=== PATIENT | female | born 1965 | race American Indian/Alaskan Native ===

== ENCOUNTER 2017-02-04 07:30 | Inpatient (IN) | payer BC, OTHER ==
--- NOTE | 2017-01-25 12:51 | Anesthesia Consultation ---
Anesthesia Consult and Med Hx Date of service: 01/25/17 - Airway Anesthetic Teeth Evaluation: Good ROM Head & Neck: Adequate Mental/Hyoid Distance: Adequate Mallampati Class: Class II Intubation Access Assessment: Probably Good - Pulmonary Exam CTA: Yes - Cardiac Exam Cardiac Exam: RRR - Pre-Operative Health Status ASA Pre-Surgery Classification: ASA3 Proposed Anesthetic Plan: General - Pulmonary Hx Sleep Apnea: Yes (uses cpap) - Cardiovascular System Hx Hypertension: Yes (3years) - Central Nervous System Hx Psychiatric Problems: No - Other Systems Hx Alcohol Use: No Hx Substance Use: No Hx Cancer: No Hx Obesity: Yes
[~2017-02-04 07:30] MED LIST: LACTATED RINGERS 1,000 ML IV SCH; PEPCID IV NR; TRANSDERM-SCOP TD NR
[2017-02-04] MEDS ORDERED: REGLAN IV PRN (10:59)
[2017-02-04] MEDS ORDERED: FLAGYL 500 MG/100 ML 500 MG/100 ML BAG IV NR (11:00)
[2017-02-04] MEDS ORDERED: LACTATED RINGERS 1,000 ML IV SCH (11:00)
[2017-02-04] MEDS ORDERED: ANCEF/STERILE WATER 2 GM/20 ML IV NR (11:00)
[2017-02-04] MEDS ORDERED: VERSED IV NR (11:00)
[2017-02-04] MEDS ORDERED: LOVENOX SUB-Q NR (11:00)
[2017-02-04] MEDS ORDERED: APRESOLINE IV PRN (11:00)
[2017-02-04] MEDS ORDERED: MORPHINE IV PRN (11:00)
[2017-02-04] MEDS ORDERED: NORCO PO PRN (11:00)
[2017-02-04] MEDS ORDERED: BENADRYL IV PRN (12:36)
[2017-02-04] MEDS ORDERED: DIPRIVAN 10 MG/ML IV ONE (12:55)
[2017-02-04] MEDS ORDERED: ZEMURON IV ONE (12:55)
[2017-02-04] MEDS ORDERED: DILAUDID ONE (12:55)
[2017-02-04] MEDS ORDERED: XYLOCAINE MPF 2% ONE (12:55)
[2017-02-04] MEDS ORDERED: ZOFRAN ONE (12:55)
[2017-02-04] MEDS ORDERED: DECADRON ONE (12:55)
[2017-02-04] MEDS ORDERED: XYLOCAINE 1% 20 mL ONE (13:09)
[2017-02-04] MEDS ORDERED: MARCAINE 0.5% 30 ML INFILTRATI ONE (13:09)
[2017-02-04] MEDS ORDERED: ADRENALIN ONE (13:09)
[2017-02-04] MEDS ORDERED: NACL 0.9% 1000 ML 1,000 ML ONE (13:42)
[2017-02-04] MEDS ORDERED: XYLOCAINE 1% 20 mL INFILTRATI ONE (13:52)
[2017-02-04] MEDS ORDERED: MARCAINE 0.5% INFILTRATI ONE (13:54)
[2017-02-04] MEDS ORDERED: NACL 0.9% IR ONE (13:54)
[2017-02-04] MEDS ORDERED: NACL 0.9% 1000 ML IR ONE (13:55)
[2017-02-04] MEDS: ZOFRAN IV PRN ×2 (15:25→18:50)
[2017-02-04] MEDS: TORADOL IV SCH ×2 (15:30→19:50)
[2017-02-04] MEDS: DILAUDID IV PRN ×4 (15:38→23:58)
--- NOTE | 2017-02-04 15:49 | Operative Report ---
Operative Report Operative Report: Operative Report DATE OF PROCEDURE: 02/04/17 PREOPERATIVE DIAGNOSES: Morbid obesity, hiatal hernia POSTOPERATIVE DIAGNOSES: 1.same as pre-op SURGEON: Regi Cannon M.D. ROOM SERVICE SERVER: Re Ahumada D.O PROCEDURE: 1. laparoscopic sleeve gastrectomy 2. laparoscopic hiatal hernia repair ANESTHESIA: General. ESTIMATED BLOOD LOSS: <5 mL. COMPLICATIONS: None. SPECIMEN: Partial gastrectomy. FINDINGS: 1. hiatal hernia INDICATION FOR PROCEDURE: Patient is a 51-year-old female with a long history of morbid obesity. She has tried multiple efforts at weight loss without operation manager success. She is here today for sleeve gastrectomy. PROCEDURE IN DETAIL: After consent was reviewed, patient was taken back to the operating room, where patient was placed supine on the bed with both arms out. The patient's legs were doubly strapped to the bed. Patient had a foot board in place. Patient had a body warmer placed by anesthesia. Patient was then prepped and draped in normal sterile surgical fashion. After a time-out was called, I made a stab incision in the LUQ placed a Veress needle through this incision and insufflated the abdomen to 18 mmHg pressure. I then counted down a handsbreadth below the xiphoid process in the midline and slightly left lateral injected local anesthetic and made about 1.5 cm transverse incision. I then used a 5mm Optiview trocar to enter into the abdomen hands breath above and lateral to umbilicus. I then placed a 45-degree scope through this port and inspected the abdomen. There was no injury on entry of the abdomen. I then placed two 5-mm ports in the right upper quadrant, one along the anterior axillary line and 1 subxiphoid below the costovertebral angle. I then placed a 15-mm port about a handsbreadth left lateral and inferior to my anterior axillary port. I then placed left upper quadrant port along the anterior axillary line in a similar fashion. Prior to each port being placed local anesthesia was placed. I then placed the liver retractor through the subxiphoid port and placed the patient in full reverse Trendelenburg. The right and left crura were skeletonized accentuating a small hiatal hernia. I then identified the pylorus and then counted off 6cm from the pylorus. I then used a LigaSure cutting device to enter into the lesser sac. At that point and then I took down the short gastrics all the way up to the left santo. Then I had anesthesia pass down a 36-[place] bougie along the lesser curvature of the stomach. I made sure everything else was out of the abdomen except the bougie. I then created my gastric sleeve using a 60-mm laparoscopic stapler. . The sleeve looked good without any twisting or torsion. I then had anesthesia to remove the bougie. Hemostasis was obtained along the staple line.An anterior cruraplasty was perfromed with a figure-of-8 stitch using surgidac suture to reapproximate the crura. I then used Tiseel along the entirety of the staple line and some on the liver. I then removed liver grasper and took it off the field. I then removed the stomach through the 15-mm port. I then closed that fascia with a #1 PDS in a [id number] fashion using a Yogi-Inocencio. I then desufflated the abdomen and then removed all port sites. I then closed the incisions with 4-0 Monocryl in subcuticular fashion. I then dressed the wounds with Dermabond. Patient tolerated the procedure well and was transferred to recovery room in good and stable condition.
[2017-02-04] MEDS: MYLICON PO PRN (17:36)
--- NOTE | 2017-02-04 17:47 | Post Anesthesia Evaluation ---
- Post Anesthesia Evaluation Patient Participated: Yes Airway Patent: Yes Stable Respiratory Function: Yes Nausea/Vomiting: No Temp > 96.8F: Yes Pain Manageable: Yes Adequeate Hydration: Yes Anesthesia Complications: No
[2017-02-04] MEDS: ANCEF/NS 1 GM/50 ML 1 GM/50 ML BAG IV SCH (17:48)
[2017-02-04] MEDS: FLAGYL 500 MG/100 ML 500 MG/100 ML BAG IV SCH (19:26)
[2017-02-05] MEDS: ANCEF/NS 1 GM/50 ML 1 GM/50 ML BAG IV SCH (02:00)
[2017-02-05] MEDS: TORADOL IV SCH ×2 (03:50→11:39)
[2017-02-05] MEDS: FLAGYL 500 MG/100 ML 500 MG/100 ML BAG IV SCH ×2 (03:52→09:46)
[2017-02-05 08:13] VITALS: BP 132/63
--- NOTE | 2017-02-05 09:34 | Progress Note ---
Assessment and Plan 51 y.o. F s/p lap sleeve gastrectomy: POD 1 Pt doing well. No further episodes of vomiting. Adavance to Bariatric clears this am. If pt tolerates clears, her pain is controlled and her labs are wnl, she will be discharged this afternoon. Encourage use of IS Subjective Narrative: Pt seen at beside. Pt had one episode of vomiting after leaving pacu. She denies further vomiting overnight. Nausea controlled with medication. Abd pain at surg. sites controlled with medication. Chest discomfort - pt points to her mid lower chest in the epigastric area. She has a sore throat. +dry cough. Per pt no hx of lung problems. +ambulation. +tolerating ice chips. afebrile Objective Vital Signs - 12hr 02/04/17 02/04/17 02/05/17 22:00 23:58 00:28 Temperature Pulse Rate Pulse Rate [ 82 Left Radial] Respiratory 18 18 18 Rate Blood Pressure O2 Sat by Pulse 98 Oximetry 02/05/17 02/05/17 02/05/17 01:57 01:59 03:50 Temperature 97.8 F Pulse Rate 70 Pulse Rate [ Left Radial] Respiratory 14 Rate Blood Pressure 114/50 O2 Sat by Pulse 99 Oximetry 02/05/17 02/05/17 02/05/17 05:13 05:16 07:42 Temperature 98.4 F 98.3 F Pulse Rate 69 79 Pulse Rate [ Left Radial] Respiratory 20 Rate Blood Pressure 148/58 132/63 O2 Sat by Pulse 98 97 Oximetry - General physical appearance well developed, obese - Respiratory normal expansion, normal respiratory effort - Abdomen soft, tender, other (tender at incision sites. incision sites are c/d/i. no erythema. no rebound no guarding. ) - Integumentary no rash, no growths - Musculoskeletal normal posture - Psychiatric oriented to time, oriented to person
--- NOTE | 2017-02-05 09:40 | Discharge Summary ---
Providers - Providers Date of Admission: 02/04/17 09:16 Attending physician: MAYNOR OLIVAREZ Hospitalization Procedures: laparoscopic sleeve gastrectomy Hospital course: 51 y.o. F admitted to the hospital for laparoscopic sleeve gastrectomy. The patient tolerated the procedure well. On POD 1 she tolerated fluids and her pain was controlled. Her nausea was controlled. She was able to ambulate. She was discharged home on POD 1 without issues. Disposition: DC-01 TO HOME OR SELFCARE Core Measure Documentation - Palliative Care Palliative Care/ Comfort Measures: Not Applicable - Core Measures Any of the following diagnoses?: none Exam - Physical Exam Narrative exam: Abd: soft, tender at incision sites. no rebound no guarding. incision sites cdi. - Constitutional Vitals: Temp Pulse Resp BP Pulse Ox 98.3 F 79 20 132/63 97 02/05/17 07:42 02/05/17 07:42 02/05/17 05:13 02/05/17 07:42 02/05/17 07:42 Plan Activity: other (no lifting >15lbs for 6 weeks) Diet: clear liquids (sugar free) Additional Instructions: follow up for wound care appt. Follow up with: DR NATALIA [Other] - 7 Days
[2017-02-05 09:59] LABS: Basophils % (Auto) 0.3 % (0.0-1.8); Hematocrit 40.3 % (30.3-42.9); Hemoglobin 12.7 gm/dl (10.1-14.3); Mean Corpuscular HGB Conc 32 % (30-34); Mean Corpuscular Volume 80 fl (79-97); Platelet Count 209 K/mm3 (140-440); Red Blood Count 5.02 M/mm3 (3.65-5.03); Red Cell Distribution Width 15.4 % (13.2-15.2)
[2017-02-05] MEDS: ZOFRAN IV PRN (09:59)
[2017-02-05] MEDS: MYLICON PO PRN (09:59)
[2017-02-05] MEDS ORDERED: LOVENOX SUB-Q SCH (10:00)
[2017-02-05 10:02] LABS: Mean Corpuscular Hemoglobin 25 pg (28-32)
[2017-02-05 10:16] LABS: Anion Gap 19 mmol/L; BUN/Creatinine Ratio 20; Blood Urea Nitrogen 16 mg/dL (7-17); Calcium 8.7 mg/dL (8.4-10.2); Carbon Dioxide 23 mmol/L (22-30); Chloride 102.4 mmol/L (98-107); Glucose 98 mg/dL (65-100); Potassium 4.2 mmol/L (3.6-5.0); Sodium 140 mmol/L (137-145)
== END 2017-02-05 17:46 | disposition home or self-care (01) | DRG 621 ==
LOC: 3A 09:16 → 3B-SURG 16:09
PROVIDERS: ADMIT Surgery; ATTEND Surgery
PROC: 0BQT4ZZ Repair Diaphragm, Percutaneous Endoscopic Approach (ICD-10-PCS; principal; 2017-02-04)
PROC: 0DB64Z3 Excision of Stomach, Percutaneous Endoscopic Approach, Vertical (ICD-10-PCS; 2017-02-04)
DX: E66.01 Morbid (severe) obesity due to excess calories (principal); K44.9 Diaphragmatic hernia without obstruction or gangrene; Z68.41 Body mass index [BMI] 40.0-44.9, adult; I10 Essential (primary) hypertension; E11.9 Type 2 diabetes mellitus without complications; F32.9 Major depressive disorder, single episode, unspecified; G47.33 Obstructive sleep apnea (adult) (pediatric)
CPT/HCPCS: 36415; 80048; 85025; 88307; C9250; J0171; J0690; J1100; J1170; J1650; J1885; J2250; J2405; J2704; J2765; J7030; J7120